=== PATIENT | female | born 1960 | race Caucasian/White ===

== ENCOUNTER 2020-08-10 14:47 | Emergency (ER) | payer MEDICAID ==
[~2020-08-10] VITALS: Ht 162.6 cm; Wt 81.6 kg
[2020-08-10 14:55] VITALS: BP 145/93
--- NOTE | 2020-08-10 15:06 | NUR ---
OF2
--- NOTE | 2020-08-10 15:10 | NUR ---
60/F BIB SELF C/O COUGH, SORE THROAT, , RUNNY NOSE, NEW TASTE DISORDER, INTERMITENT WHOLE CHEST, WHOLE BACK PAIN X 4 DAYS. DENIES PAIN AT THIS TIME. PMH: HTN, HLD
--- NOTE | 2020-08-10 15:23 | NUR ---
Patient being evaluated by HEATHER SANTOS at bedside.
--- NOTE | 2020-08-10 15:23 | NUR ---
COVID SWAB COLLECTED.
[2020-08-10 16:34] VITALS: BP 145/93
--- NOTE | 2020-08-10 16:34 | NUR ---
Patient discharged with v/s stable. Written and verbal after care instructions given and explained. Patient alert, oriented and verbalized understanding of instructions. Ambulatory with steady gait. All questions addressed prior to discharge. ID band removed. Patient advised to follow up with PMD. Rx of PROMETHAZINE & TYLENOL given. Patient educated on indication of medication including possible reaction and side effects. Opportunity to ask questions provided and answered.
== END 2020-08-10 16:34 | disposition home or self-care (01) ==
LOC: MED 14:47
DX: R05 Cough (principal); Z20.828 Contact with and (suspected) exposure to other viral communicable diseases; I10 Essential (primary) hypertension; E78.5 Hyperlipidemia, unspecified; Z91.040 Latex allergy status
CPT/HCPCS: 71045; 99284; U0003

== ENCOUNTER 2020-08-19 10:17 | Emergency (ER) | payer MEDICAID, SELFPAY ==
[~2020-08-19] VITALS: Ht 162.6 cm; Wt 81.6 kg
[2020-08-19 10:26] VITALS: BP 140/108
--- NOTE | 2020-08-19 10:28 | NUR ---
Patient in tent for covid precautions
--- NOTE | 2020-08-19 10:39 | NUR ---
Pt c/o nasal congestion, tested + for covid on 08/10, states she wants head CT due to congestion
== END 2020-08-19 12:06 | disposition home or self-care (01) ==
LOC: MED 10:17
DX: J34.0 Abscess, furuncle and carbuncle of nose (principal); I10 Essential (primary) hypertension; Z91.040 Latex allergy status
CPT/HCPCS: 99281

== ENCOUNTER 2020-09-24 07:23 | Emergency (ER) | payer MEDICAID, SELFPAY ==
[~2020-09-24] VITALS: Ht 162.6 cm; Wt 79.4 kg
[2020-09-24 07:25] VITALS: BP 126/70
--- NOTE | 2020-09-24 07:35 | NUR ---
PT AMB TO BED 12
--- NOTE | 2020-09-24 07:56 | NUR ---
60 YEAR OLD FEMALE COMPLAINS OF BLOOD IN STOOL X 3 DAYS. PT DENIES ANY PAIN IN ABDOMINAL AREA, DENIES BLOOD IN URINE, DENIES N/V/D. PT AOX4, BREATHING EVEN AND UNLABORED, SKIN WARM AND DRY. BED IN LOWEST POSITION, LOCKED, BED RAIL UPX1. PMH - HTN, HLD ALLERGIES - LATEX
[2020-09-24 08:07] LABS: BASOPHILS # (AUTO) 0.1 K/uL (0.00-0.22); BASOPHILS % (AUTO) 1.2 % (0.0-2.0); EOSINOPHILS # (AUTO) 0.1 K/uL (0-0.4); EOSINOPHILS % (AUTO) 2.1 % (0.0-4.0); LYMPHOCYTES # (AUTO) 2.3 K/uL (2.5-16.5); MEAN CORPUSCULAR HEMOGLOBIN 29 pg (27-31); MEAN CORPUSCULAR HGB CONC 33 g/dL (33-37); MEAN CORPUSCULAR VOLUME 86.2 fL (80-94); MONOCYTES # (AUTO) 0.4 K/uL (0.8-1.0); MONOCYTES % (AUTO) 6.5 % (1.7-9.3); NEUTROPHILS # (AUTO) 3.6 K/uL (1.8-7.7); NEUTROPHILS % (AUTO) 55.2 % (42.2-75.2); PLATELET COUNT (AUTO) 204 K/uL (140-450); RED BLOOD CELL COUNT(AUTO) 4.52 MIL/uL (4.20-5.40); RED CELL DISTRIBUTION WIDTH 13.6 % (11.6-13.7); WHITE BLOOD COUNT (AUTO) 6.4 K/uL (4.8-10.8)
[2020-09-24 08:10] LABS: APPEARANCE,URINE CLEAR (CLEAR); BILIRUBIN,URINE NEGATIVE (NEGATIVE); BLOOD, URINE NEGATIVE (NEGATIVE); COLOR,URINE YELLOW (YELLOW); LEUKOCYTE ESTERASE ,URINE NEGATIVE (NEGATIVE); NITRITE, URINE NEGATIVE (NEGATIVE); UGLUCOSE NEGATIVE (NEGATIVE)
[2020-09-24 08:21] LABS: ALBUMIN 4.2 g/dL (3.4-5.0); ANION GAP 14.6 (8-16); CARBON DIOXIDE 27.3 mmol/L (21-32); CREATININE 0.8 mg/dL (0.6-1.3); POTASSIUM 3.9 mmol/L (3.5-5.1); PROTHROMBIN TIME 10.2 secs (10.8-13.4); TOTAL BILIRUBIN 0.4 mg/dL (0.0-1.0)
--- NOTE | 2020-09-24 09:00 | NUR ---
Patient discharged with v/s stable. Written and verbal after care instructions about rectal bleeding given and explained. Patient alert, oriented and verbalized understanding of instructions. Ambulatory with steady gait. All questions addressed prior to discharge. ID band removed. Patient advised to follow up with PMD. Rx of pepcid, colace, protonix, miralax given. Patient educated on indication of medication including possible reaction and side effects. Opportunity to ask questions provided and answered.
[2020-09-24 09:03] VITALS: BP 126/70
== END 2020-09-24 09:00 | disposition home or self-care (01) ==
LOC: MED 07:23
DX: K92.1 Melena (principal); K59.00 Constipation, unspecified; I10 Essential (primary) hypertension; Z91.040 Latex allergy status
CPT/HCPCS: 36415; 80053; 81003; 81025; 85025; 85610; 85730; 99283